=== PATIENT | male | born 1960 | race Asian ===

== ENCOUNTER 2018-11-18 05:49 | Observation (INO) | payer OTHER ==
[2018-11-18] MEDS ORDERED: GLYCOPYRROLATE 0.4 MG INJ (06:21)
[2018-11-18] MEDS ORDERED: PROPOFOL 20 ML (06:21)
[2018-11-18] MEDS ORDERED: ROCURONIUM 50 MG INJ (06:21)
[2018-11-18] MEDS ORDERED: FENTAnyl 50 MCG/ML VIAL ×2 (06:21→10:08)
[2018-11-18] MEDS ORDERED: LIDOCAINE 2% (SDV) 5 ML INJ (06:21)
[2018-11-18] MEDS ORDERED: NEOSTIGMINE 3 MG/3 ML SYRINGE (06:21)
[2018-11-18] MEDS ORDERED: MIDAZOLAM 1 MG/ML 2 ML INJ (06:21)
[2018-11-18] MEDS ORDERED: SUCCINYLCHOLINE CHLORIDE 100 MG/5 ML SYG IV (06:34)
[2018-11-18] MEDS ORDERED: DEXAMETHASONE 4 MG/ML 5 ML INJ (07:00)
[2018-11-18] MEDS ORDERED: SEVOFLURANE 15 MIN (07:00)
[2018-11-18] MEDS ORDERED: ONDANSETRON 4 MG INJ ×2 (07:00→10:08)
[2018-11-18] MEDS ORDERED: CIPROFLOXACIN 400MG/D5W 200 ML (07:34)
[2018-11-18] MEDS ORDERED: SUGAMMADEX SODIUM 200 MG/2 ML VIAL IV (08:55)
[2018-11-18] MEDS ORDERED: BELLADONNA ALK/OPIUM SUPP PR (09:30)
[2018-11-18] MEDS ORDERED: MAGNESIUM HYDROXIDE 30ML CUP PO (09:30)
[2018-11-18] MEDS: FENTAnyl 50 MCG/ML VIAL IV (10:15)
[2018-11-18] MEDS: ONDANSETRON 4 MG INJ IV (10:15)
[2018-11-18] MEDS ORDERED: METOCLOPRAMIDE 10 MG INJ IV (10:30)
[2018-11-18] MEDS ORDERED: FENTAnyl 50 MCG/ML VIAL IV ×2 (10:30)
[2018-11-18] MEDS ORDERED: HYDROmorphONE 1 MG/5 ML IV SYRINGE IV ×3 (10:30)
[2018-11-18] MEDS: DEXTROSE 5%-0.45% NACL 1,000 ML IV (11:28)
[2018-11-18 11:34] LABS: ADD MAN DIFF? NO
[2018-11-18 11:36] LABS: BASOPHILS % 0.1 % (0.0-2.0); EOSINOPHILS % 0.4 % (0.0-7.0); HEMATOCRIT 41.1 % (42.0-52.0); HEMOGLOBIN 13.9 g/dl (14.0-18.0); LYMPHOCYTES # 0.7 10^3/ul (0.8-2.9); LYMPHOCYTES % 9.4 % (15.0-51.0); MEAN CORPUSCULAR HGB CONC 33.8 g/dl (32.0-37.0); MEAN CORPUSCULAR VOLUME 91.5 fl (82.0-101.0); MEAN PLATELET VOLUME 8.4 fl (7.4-10.4); MONOCYTE # 0.2 10^3/ul (0.3-0.9); NEUTROPHIL # 6.5 10^3/ul (1.6-7.5); NEUTROPHILS % 87.7 % (39.0-77.0); PLATELET COUNT 264 10^3/UL (140-415); RED BLOOD COUNT 4.49 10^6/ul (4.70-6.10); RED CELL DISTRIBUTION WIDTH 12.5 % (11.5-14.5)
[2018-11-18 11:36] LABS: WHITE BLOOD COUNT 7.4 10^3/ul (4.8-10.8)
[2018-11-18] MEDS: HYDROCODONE/APAP (5/325) TAB PO ×2 (16:19→21:04)
[2018-11-18] MEDS: CIPROFLOXACIN 500 MG TAB PO (17:07)
[2018-11-18] MEDS: DOCUSATE SODIUM 100 MG CAP PO (21:00)
[2018-11-18] MEDS: TAMSULOSIN (SR) 0.4 MG CAP PO (21:00)
[2018-11-19] MEDS: DEXTROSE 5%-0.45% NACL 1,000 ML IV (05:08)
[2018-11-19] MEDS: CIPROFLOXACIN 500 MG TAB PO (06:47)
[2018-11-19] MEDS: FINASTERIDE 5 MG TAB PO (08:24)
[2018-11-19] MEDS: DOCUSATE SODIUM 100 MG CAP PO (08:24)
== END 2018-11-19 11:58 | disposition home or self-care (01) ==
LOC: SDS 05:49 → REC 09:08 → PP2 11:01
PROVIDERS: Urology
DX: N40.1 Benign prostatic hyperplasia with lower urinary tract symptoms (principal)
CPT/HCPCS: 52601; 85025; 86850; 86900; 86901; 86920; 88305